=== PATIENT | female | born 1940 | race Caucasian/White ===

== ENCOUNTER 2017-02-04 11:24 | Emergency (ER) | payer MEDICARE, BC ==
[~2017-02-04] VITALS: Ht 160 cm; Wt 53.4 kg
[~2017-02-04 11:24] MED LIST: ADVAI250I PO; ALBU1AER INH; ALBU6.7H INH; ALEN70TA39 PO; ASPI81 PO; CALTTAB2 PO; GABA600T PO; LANSO15 PO/TUBE; LEVA750T PO; LORTA5 PO; METO50 PO; MEVA40TA PO; OCUVTAB4 PO; PRED20 PO; ROBIACUDC PO; VITA-83 PO
[2017-02-04 11:31] VITALS: BP 133/64; PULSE 94; RESP 18; TEMP 98.9; O2SAT 93
[2017-02-04] MEDS ORDERED: ASPI1TAB69 PO (11:53)
[2017-02-04] MEDS ORDERED: ALEN1TAB48 PO (11:53)
[2017-02-04] MEDS ORDERED: CALC500T37 PO (11:53)
[2017-02-04] MEDS ORDERED: ALBUAER3 INH (11:53)
[2017-02-04] MEDS ORDERED: ATOR40TA16 PO (11:53)
[2017-02-04] MEDS ORDERED: HYDR-3516 PO (11:53)
[2017-02-04] MEDS ORDERED: LANS15CA PO (11:53)
[2017-02-04] MEDS ORDERED: CALC1WAF CHEW (11:53)
[2017-02-04] MEDS ORDERED: MULTTAB67 PO (11:53)
[2017-02-04] MEDS ORDERED: ALBU6.7H INH (11:53)
[2017-02-04] MEDS ORDERED: GABA600T PO (11:53)
[2017-02-04] MEDS ORDERED: METO25TA3 PO (11:53)
[2017-02-04] MEDS ORDERED: ADVA250A INH (11:53)
[2017-02-04] MEDS ORDERED: GUAI100S5 PO (11:53)
[2017-02-04] MEDS ORDERED: PRED20 PO (11:59)
--- NOTE | 2017-02-04 12:01 | PD ---
HPI Chief Complaint: Respiratory Symptoms Time Seen by Provider: 11:40 Travel History International Travel<30 days: No Contact w/Intl Traveler<30days: No Traveled to known affect area: No History of Present Illness HPI This patient complains of congestion and cough. She has recently quit smoking after a lifetime of smoking. She has nebulizer and inhaler and oxygen at home. She just completed [facility] 2 days ago. Severity is mild to moderate PFSH Past Medical History Hx Anticoagulant Therapy: Yes (asa 81mg) Arthritis: Yes Asthma: Yes Autoimmune Disease: No Anxiety: No Depression: No Heart Rhythm Problems: Yes Cancer: No Cardiac Catheterization: Yes Cardiovascular Problems: Yes (htn on meds) High Cholesterol: Yes Chest Pain: Yes Congestive Heart Failure: No COPD: Yes Cerebrovascular Accident: No Coronary Artery Disease: No Diabetes: No Diminished Hearing: No Endocrine: No Gastrointestinal Disorders: Yes (BOWEL ISSUES) GERD: Yes Genitourinary: No Hiatal Hernia: Yes Hypertension: Yes Immune Disorder: No Implanted Vascular Access Dvce: Yes Musculoskeletal: Yes (chronic back pain) Neurologic: Yes (neuropathy) Psychiatric: No Reproductive: No Respiratory: Yes (copd , oxygen at home at 2lpm by [place]) Immunizations Current: Yes Migraines: No Seizures: No Sleep Apnea: No Thyroid Disease: No Ulcer: Yes Tetanus Vaccination: < 5 Years Influenza Vaccination: Yes ?: Not Menopausal: Yes Past Surgical History Abdominal Surgery: Yes (colon RESECTION. APPY. GONZALO) AICD: No Appendectomy: Yes Arteriovenous Shunt: No Cardiac Surgery: Yes (HEART CATH) Cholecystectomy: Yes Coronary Stent: Yes Ear Surgery: No Endocrine Surgery: No Eye Surgery: Yes (BILAT CATARACTS) Genitourinary Surgery: No Gynecologic Surgery: Yes (HYSTER) Hysterectomy: Yes Insulin Pump: No Joint Replacement: Yes (BILATERAL TOTAL HIP) Oral Surgery: No Pacemaker: No Thoracic Surgery: No Other Surgery: Yes (LEFT ARM SURGERY TO INCREASE BLOOD FLOW) Social History Alcohol Use: Yes (OCCASIONAL) Tobacco Use: No (1-2 CIGS A DAY) Substance Use: No Allergies-Medications (Allergen,Severity, Reaction): Coded Allergies: No Known Allergies (Verified , 02/04/17) Reported Meds & Prescriptions Reported Meds & Active Scripts Active Reported Multiple Vitamin 1 Tab 1 Tab PO DAILY Metoprolol Tartrate 25 Mg Tab 25 Mg PO DAILY Atorvastatin (Atorvastatin Calcium) 40 Mg Tab 40 Mg PO HS Lansoprazole 15 Mg Capdr 15 Mg PO DAILY Hydrocodone-Acetaminophen 5-325 mg Tab 1 Tab PO Q6H PRN Guaifenesin-Codeine Liq 100-10 Mg/5 Ml Soln 10 Ml PO Q6H PRN Gabapentin 600 Mg Tab 600 Mg PO BID Advair Diskus Inh (Fluticasone-Salmeterol Inh) 250-50 Mcg/Blist Aer 1 Puff INH BID Rinse mouth after use. Calcium Carbonate 500 Mg Wafr 500 Mg CHEW 500 mg calcium carbonate (200 mg elemental calcium) Calcium Ascorbate 500 Mg Tab 500 Mg PO Aspirin 81 Mg Tabdr 81 Mg PO DAILY Alendronate (Alendronate Sodium) 70 Mg Tab 70 Mg PO Q7D Proair Hfa 8.5 GM Inh (Albuterol Sulfate) 90 Mcg/Act Aer 1 Puff INH Q4H PRN 108 mcg/actuation Proventil Hfa 6.7 GM Inh (Albuterol Sulfate) 90 Mcg/Act Aer 1 Puff INH Q4H PRN Review of Systems General / Constitutional: No: Fever HENT: No: Headaches Respiratory: Positive: Cough Physical Exam Narrative GENERAL: Thin elderly well-developed patient in no apparent distress. SKIN: Focused skin assessment reveals no rash and nodules. Skin is Warm and dry. HEAD: Atraumatic. Normocephalic. EYES: Pupils equal and round. No scleral icterus. No injection or drainage. ENT: No nasal bleeding or discharge. Mucous membranes pink and moist. NECK: Trachea midline. No JVD. CARDIOVASCULAR: Regular rate and rhythm. No murmur appreciated. RESPIRATORY: No accessory muscle use. Minor rhonchi and expiratory wheeze. Breath sounds equal bilaterally. GASTROINTESTINAL: Abdomen soft, non-tender, nondistended. Hepatic and splenic margins not palpable. MUSCULOSKELETAL: No obvious deformities. No clubbing. No cyanosis. No edema. NEUROLOGICAL: Awake and alert. No obvious cranial nerve deficits. Motor grossly within normal limits. Normal speech. PSYCHIATRIC: Appropriate mood and affect; insight and judgment normal. Data Data Last Documented VS Vital Signs Date Time Temp Pulse Resp B/P Pulse Ox O2 Delivery O2 Flow Rate FiO2 02/04/17 11:43 18 97 Nasal Cannula 2 02/04/17 11:31 98.9 94 133/64 MDM Medical Decision Making Medical Screen Exam Complete: Yes Emergency Medical Condition: Yes Medical Record Reviewed: Yes Differential Diagnosis Bronchitis, COPD, pneumonia Narrative Course I have reviewed the patient's electronic medical record. Presentation most consistent with acute viral bronchitis on top of some COPD However she is very stable. She has oxygen nebulizers and inhalers at home. I' ve given her 5 days of prednisone. Diagnosis Primary Impression: Acute bronchitis Qualified Code: J20.9 - Acute bronchitis, unspecified organism Additional Impression: COPD (chronic obstructive pulmonary disease) Qualified Code: J44.9 - Chronic obstructive pulmonary disease, unspecified COPD type Additional Instructions: The patient was advised to follow up with their physician and return if they worsen. Med/Other Pt SpecificInfo: Prescription(s) given Scripts Prednisone 20 Mg Tab40 Mg PO DAILY #10 TAB Ref 0 Take 40 mg (2 tablets) daily for 5 days Prov:Braden Hirsch MD 02/04/17 Disposition: 01 DISCHARGE HOME Condition: Stable Braden Hirsch MD Feb 04, 2017 12:01
== END 2017-02-04 12:16 | disposition home or self-care (01) ==
LOC: PHED 11:24
DX: J20.9 Acute bronchitis, unspecified (principal); J44.0 Chronic obstructive pulmonary disease with (acute) lower respiratory infection; I10 Essential (primary) hypertension; E78.00 Pure hypercholesterolemia, unspecified; M54.9 Dorsalgia, unspecified; Z99.81 Dependence on supplemental oxygen; Z87.891 Personal history of nicotine dependence; Z79.82 Long term (current) use of aspirin